=== PATIENT | female | born 1980 | race Caucasian/White ===

== ENCOUNTER 2017-03-04 12:59 | Emergency (ER) | payer OTHER ==
[2017-03-04 13:05] VITALS: O2SAT 100
[2017-03-04] MEDS ORDERED: Sodium Chloride 0.9% 1,000 ML IV ONE (13:20)
[2017-03-04 13:46] LABS: BASO # 0.1 K/uL (0.0-0.2); BASO % 1.1 % (0.0-2.0); EOS # 0.1 K/uL (0.0-0.7); EOS % 0.9 % (0.0-4.0); HEMATOCRIT 42.4 % (34.0-47.0); LYMPH # 2.9 K/uL (1.0-4.3); LYMPH % 22.6 % (20.0-40.0); MEAN CELL VOLUME 88.1 fL (81.0-99.0); MEAN CORPUSCULAR HEMOGLOBIN 30.7 pg (27.0-31.0); MEAN CORPUSCULAR HGB CONC 34.8 g/dL (33.0-37.0); MONO # 0.8 K/uL (0.0-0.8); MONO % 6.1 % (0.0-10.0); NRBC % 0.1 % (0.0-2.0); RED CELL DISTRIBUTION WIDTH 13.8 % (11.5-14.5); WHITE BLOOD COUNT 12.8 K/uL (4.8-10.8)
[2017-03-04 14:00] LABS: CHLORIDE 103 mmol/L (98-107); SODIUM 136 mmol/L (132-148)
[2017-03-04 14:02] LABS: RBC URINE 8 /hpf (0-3); URINE BACTERIA RARE (<OCC); URINE BILIRUBIN NEGATIVE (NEGATIVE); URINE BLOOD 3+ (NEGATIVE); URINE COLOR Yellow (YELLOW); URINE GLUCOSE (UA) NORMAL (Normal); URINE KETONE NEGATIVE (NEGATIVE); URINE LEUKOCYTE ESTERASE 2+ Leu/uL (Negative); URINE PROTEIN 1+ mg/dL (NEGATIVE); URINE UROBILINOGEN NORMAL mg/dL (0.2-1.0); WBC URINE 17 /hpf (0-5)
[2017-03-04 14:03] LABS: ALB/GLOB RATIO 1.5 (1.0-2.1); ALKALINE PHOSPHATASE 57 U/L (38-126); ALT/SGPT 28 U/L (9-52); AST/SGOT 25 U/L (14-36); BILIRUBIN,TOTAL 0.5 mg/dL (0.2-1.3); BLOOD UREA NITROGEN 9 mg/dL (7-17); CARBON DIOXIDE 20 mmol/L (22-30); GFR AFRICAN-AMERICAN > 60; GLUCOSE,RANDOM 89 mg/dL (65-105); TOTAL PROTEIN 7.4 g/dL (6.3-8.3)
[2017-03-04 14:04] LABS: CALCIUM 9.5 mg/dl (8.6-10.4)
--- NOTE | 2017-03-04 15:28 | US ---
Pelvic ultrasound History: Vaginal bleeding. . Comparison: None available. Technique: Real-time sonography was performed through the pelvis utilizing transabdominal and transvaginal techniques. Findings: LMP of 12/30/2016. Positive urine test. Uterus: 11.4 x 3.8 x 5.9 centimeters. Anteverted. Heterogeneous echotexture. 3.3 x 3.0 x 3.2 centimeter echogenic lesion in the mid fundal anterior uterus suggestive for a possible fibroid lesion. Intrauterine with intrauterine gestational sac measuring 1.66 centimeters corresponding to a gestational age of 6 weeks and 0 days. Yolk sac identified measuring 4 millimeters. [place]-rump length measures 3.9 millimeters corresponding to a gestational age of 6 weeks and 1 day. No heart rate identified on this study. No free fluid in the pelvic cul-de-sac. Right ovary: 3.1 x 1.9 x 2.4 centimeters. Normal flow. Heterogeneous probable corpus luteal cyst measuring 1.8 x 1.7 x 1.5 centimeters. Left ovary: 2.8 x 1.8 x 2.1 centimeters. Normal flow. Cervix measures 3.6 centimeters. Impression: Positive urine test. Intrauterine corresponding to a gestational age of approximately 6 weeks and 1 days with crown-rump length of 3.9 millimeters. Yolk sac and gestational sac identified. No heart rate identified on this study. This may represent an early intrauterine . Clinical correlation. Repeat ultrasound recommended. 3.3 centimeter echogenic lesion within the mid fundus of the uterus anteriorly which may represent a fibroid lesion. 1.8 centimeter probable right ovarian corpus luteal cyst. Limited 1st trimester ultrasound for viability purposes only. Continued interval followup with serial ultrasound, serial HCG levels, and gynecological consultation would be helpful if clinically indicated.
--- NOTE | 2017-03-04 15:32 | C.PDOC ---
History Of Present Illness 36 y/o female, , 6 weeks , presents to ED for evaluation of vaginal spotting for the past week. Pt states she has been noticing blood when wiping. Pt notes being seen by OBGYN yesterday, had sonogram done which showed gestational sac but no heart beat. (+) mild pelvic cramping. Pt reports that 1st progressed normally, with delivery. Denies fever, vomiting, diarrhea, or vaginal discharge. Time Seen by Provider: 03/04/17 13:15 Chief Complaint (Nursing): Female Genitourinary History Per: Patient History/Exam Limitations: no limitations Onset/Duration Of Symptoms: Days (1 week) Current Symptoms Are (Timing): Still Present Quality Of Discomfort: Cramping Associated Symptoms: denies: Fever, Chills, Vomiting, Diarrhea, Loss Of Appetite , Back Pain, Chest Pain, Constipation, Urinary Symptoms Alleviating Factors: None Additional History Per: Patient Abnormal Vaginal Bleeding: Yes : 2 Para: 1 Miscarriage: 0 Past Medical History Reviewed: Historical Data, Nursing Documentation, Vital Signs Vital Signs: Last Vital Signs Temp 97.8 F 03/04/17 13:04 Pulse 91 H 03/04/17 13:04 Resp 16 03/04/17 13:04 BP 108/74 03/04/17 13:04 Pulse Ox 100 03/04/17 16:51 Family History: States: Unknown Family Hx - Social History Hx Tobacco Use: No Hx Alcohol Use: No Hx Substance Use: No - Immunization History Hx Tetanus Toxoid Vaccination: No Hx Influenza Vaccination: No Hx Pneumococcal Vaccination: No Review Of Systems Except As Marked, All Systems Reviewed And Found Negative. Constitutional: Negative for: Fever, Chills Cardiovascular: Negative for: Chest Pain, Palpitations Respiratory: Negative for: Shortness of Breath Gastrointestinal: Negative for: Nausea, Vomiting, Diarrhea, Constipation Genitourinary: Positive for: Vaginal Bleeding (vaginal spotting), Pelvic Pain ( pelvic cramping). Negative for: Dysuria, Frequency, Incontinence, Hematuria, Vaginal Discharge Musculoskeletal: Negative for: Back Pain Skin: Negative for: Rash Physical Exam - Physical Exam Appears: Non-toxic, No Acute Distress Skin: Warm, Dry, No Rash Head: Atraumatic, Normacephalic Eye(s): bilateral: Normal Inspection, EOMI Oral Mucosa: Moist Neck: Normal ROM, Supple Chest: Symmetrical, No Tenderness Cardiovascular: Rhythm Regular, No Murmur Respiratory: Normal Breath Sounds, No Rales, No Rhonchi, No Wheezing Gastrointestinal/Abdominal: Soft, No Tenderness, No Guarding, No Rebound Back: No CVA Tenderness Extremity: Normal ROM Neurological/Psych: Oriented x3, Normal Speech ED Course And Treatment - Laboratory Results Result Diagrams: 03/04/17 13:42 03/04/17 13:42 O2 Sat by Pulse Oximetry: 100 (on RA) Pulse Ox Interpretation: Normal - CT Scan/US Preg 1st trimester US Other Rad Studies (CT/US): Read By Radiologist, Radiology Report Reviewed CT/US Interpretation: Accession No. : [id number]. Patient Name / ID : DEANDRA SPENCE / [id number]. Exam Date : 03/04/2017 14:26:16 ( Approved ). Study Comment : Sex / Age : F / 36Y. Creator : Luis A Sanders MD. Dictator : Luis A Sanders MD. Project Development Leader : Dead Mail Checker : Luis A Sanders MD. Approver2 : Report Date : 03/04/2017 15:26:30. My Comment : . Pelvic ultrasound. History: Vaginal bleeding. . Comparison: None available. Technique: Real-time sonography was performed through the pelvis utilizing transabdominal and transvaginal techniques. Findings: LMP of 12/30/2016. Positive urine test. Uterus: 11.4 x 3.8 x 5.9 centimeters. Anteverted. Heterogeneous echotexture. 3.3 x 3.0 x 3.2 centimeter echogenic lesion in the mid fundal anterior uterus suggestive for a possible fibroid lesion. Intrauterine with intrauterine gestational sac measuring 1.66 centimeters corresponding to a gestational age of 6 weeks and 0 days. Yolk sac identified measuring 4 millimeters. [place]-rump length measures 3.9 millimeters corresponding to a gestational age of 6 weeks and 1 day. No heart rate identified on this study. No free fluid in the pelvic cul-de-sac. Right ovary : 3.1 x 1.9 x 2.4 centimeters. Normal flow. Heterogeneous probable corpus luteal cyst measuring 1.8 x 1.7 x 1.5 centimeters. Left ovary: 2.8 x 1.8 x 2.1 centimeters. Normal flow. Cervix measures 3.6 centimeters. Impression: Positive urine test. Intrauterine corresponding to a gestational age of approximately 6 weeks and 1 days with crown-rump length of 3.9 millimeters. Yolk sac and gestational sac identified. No heart rate identified on this study. This may represent an early intrauterine . Clinical correlation. Repeat ultrasound recommended. 3.3 centimeter echogenic lesion within the mid fundus of the uterus anteriorly which may represent a fibroid lesion. 1.8 centimeter probable right ovarian corpus luteal cyst. Limited 1st trimester ultrasound for viability purposes only. Continued interval followup with serial ultrasound, serial HCG levels, and gynecological consultation would be helpful if clinically indicated. Progress Note: Blood work, UA, Preg 1st trimester ultrasound ordered and reviewed. Patient was given IV fluids. Disposition Counseled Patient/Family Regarding: Studies Performed, Diagnosis, Need For Followup - Disposition Referrals: Cristal Colbert MD [Staff Provider] - Disposition: HOME/ ROUTINE Disposition Time: 16:45 Condition: STABLE Additional Instructions: SEGUIMIENTO CON EL DR. COLBERT EL REINA SEGN LO PREVISTO DEVUELVA A LA JOSE ANTONIO DE EMERGENCIA SI LOS SNTOMAS EMPEORARAN Prescriptions: Nitrofurantoin Macrocrystals [Macrobid] 1 cap PO BID #14 cap Instructions: First Trimester Vaginal Bleed (ED), Urinary Tract Infection in (ED) Forms: [employer] (Japanese) Print Language: ANGUILLAN - POA Present On Arrival: None - Clinical Impression Clinical Impression: Spotting in first trimester, UTI in - Scribe Statement The provider has reviewed the documentation as recorded by the Kathyibtrudy Castañeda All medical record entries made by the Scribe were at my direction and personally dictated by me. I have reviewed the chart and agree that the record accurately reflects my personal performance of the history, physical exam, medical decision making, and the department course for this patient. I have also personally directed, reviewed, and agree with the discharge instructions and disposition.
--- NOTE | 2017-03-04 15:36 | C.PDOC ---
Time Seen by Provider: 03/04/17 13:15 Chief Complaint (Nursing): Female Genitourinary Past Medical History Vital Signs: Last Vital Signs Temp 97.8 F 03/04/17 13:04 Pulse 91 H 03/04/17 13:04 Resp 16 03/04/17 13:04 BP 108/74 03/04/17 13:04 Pulse Ox 100 03/04/17 15:35 Family History: States: Unknown Family Hx - Social History Hx Tobacco Use: No Hx Alcohol Use: No Hx Substance Use: No - Immunization History Hx Tetanus Toxoid Vaccination: No Hx Influenza Vaccination: No Hx Pneumococcal Vaccination: No ED Course And Treatment - Laboratory Results Result Diagrams: 03/04/17 13:42 03/04/17 13:42 O2 Sat by Pulse Oximetry: 100 - CT Scan/US TRANSVAGINAL US Other Rad Studies (CT/US): Read By Radiologist, Radiology Report Reviewed CT/US Interpretation: Accession No. : [id number]. Patient Name / ID : DEANDRA SPENCE / [id number]. Exam Date : 03/04/2017 14:26:16 ( Approved ). Study Comment : Sex / Age : F / 36Y. Creator : Luis A Sanders MD. Dictator : Luis A Sanders MD. Job Spotter : Size Worker : Luis A Sanders MD. Approver2 : Report Date : 03/04/2017 15:26:30. My Comment : . Pelvic ultrasound. History: Vaginal bleeding. . Comparison: None available. Technique: Real-time sonography was performed through the pelvis utilizing transabdominal and transvaginal techniques. Findings: LMP of 12/30/2016. Positive urine test. Uterus: 11.4 x 3.8 x 5.9 centimeters. Anteverted. Heterogeneous echotexture. 3.3 x 3.0 x 3.2 centimeter echogenic lesion in the mid fundal anterior uterus suggestive for a possible fibroid lesion. Intrauterine with intrauterine gestational sac measuring 1.66 centimeters corresponding to a gestational age of 6 weeks and 0 days. Yolk sac identified measuring 4 millimeters. [place]-rump length measures 3.9 millimeters corresponding to a gestational age of 6 weeks and 1 day. No heart rate identified on this study. No free fluid in the pelvic cul-de-sac. Right ovary : 3.1 x 1.9 x 2.4 centimeters. Normal flow. Heterogeneous probable corpus luteal cyst measuring 1.8 x 1.7 x 1.5 centimeters. Left ovary: 2.8 x 1.8 x 2.1 centimeters. Normal flow. Cervix measures 3.6 centimeters. Impression: Positive urine test. Intrauterine corresponding to a gestational age of approximately 6 weeks and 1 days with crown-rump length of 3.9 millimeters. Yolk sac and gestational sac identified. No heart rate identified on this study. This may represent an early intrauterine . Clinical correlation. Repeat ultrasound recommended. 3.3 centimeter echogenic lesion within the mid fundus of the uterus anteriorly which may represent a fibroid lesion. 1.8 centimeter probable right ovarian corpus luteal cyst. Limited 1st trimester ultrasound for viability purposes only. Continued interval followup with serial ultrasound, serial HCG levels, and gynecological consultation would be helpful if clinically indicated. Disposition - Disposition Forms: [employer] (Ivorian)
[2017-03-04 17:03] VITALS: BP 105/73; PULSE 89; RESP 20; TEMP 98.7
== END 2017-03-04 17:03 | disposition home or self-care (01) ==
LOC: C.ER 12:59
DX: O26.851 Spotting complicating pregnancy, first trimester (principal); O23.41 Unspecified infection of urinary tract in pregnancy, first trimester; Z3A.01 Less than 8 weeks gestation of pregnancy
CPT/HCPCS: 76805; 76817; 80053; 81001; 84702; 84703; 85025; 86850; 86900; 96360; 99284; J7040

== ENCOUNTER 2017-03-13 12:06 | Day surgery (SDC) | payer OTHER ==
[2017-03-10 14:08] VITALS: BMI 33.6
[2017-03-13] MEDS ORDERED: Lactated Ringer's 1,000 ML IV ONE ×2 (14:20)
[2017-03-13] MEDS ORDERED: Lidocaine Hydrochloride 5 ML INJ ONE (14:22)
[2017-03-13] MEDS ORDERED: Propofol 10 mg/ml Inj (20 ML) ONE (14:22)
[2017-03-13] MEDS ORDERED: Midazolam 2 MG/2 ML VIAL ONE (14:22)
[2017-03-13] MEDS ORDERED: cefOXitin IV 1 gm in Dextrose 1 GM/50 ML BAG IVPB ONE (14:28)
--- NOTE | 2017-03-13 14:59 | PCM.SURG1 ---
Surgeon's Initial Post Op Note - Surgeon's Notes Surgeon: Dr. Colbert [employer] Specialist: None Type of Anesthesia: General LMA Anesthesia Administered By: Dr. Gan Pre-Operative Diagnosis: 36 yo with Missed , Incomplete Operative Findings: AV uterus os open 1 cm Post-Operative Diagnosis: Same as above Operation Performed: Suction D and C Specimen/Specimens Removed: POCS Estimated Blood Loss: EBL {In ML}: 50 Blood Products Given: N/A Drains Used: No Drains Post-Op Condition: Good Date of Surgery/Procedure: 03/13/17 Time of Surgery/Procedure: 14:59
[2017-03-13] MEDS ORDERED: HYDROmorphone 0.5 mg/0.5 ml ISec IVP PRN (15:09)
[2017-03-13] MEDS ORDERED: Lactated Ringer's 1,000 ML IV SCH (15:15)
[2017-03-13 15:27] VITALS: O2SAT 100
[2017-03-13 16:47] VITALS: RESP 16
[2017-03-13 16:50] VITALS: BP 110/62; PULSE 86; TEMP 97.4
--- NOTE | 2017-03-20 16:59 | OP ---
PROCEDURE DATE: 03/13/2017 PREOPERATIVE DIAGNOSIS: A [id number] with history of menorrhagia, irregular menstrual period, failure of medical therapy. POSTOPERATIVE DIAGNOSIS: A [id number] with history of menorrhagia, irregular menstrual period, failure of medical therapy. PROCEDURE: Hysteroscopy and MyoSure and D and C. SURGEON: Cristal Colbert MD TYPE OF ANESTHESIA: General LMA. FINDINGS: Anteverted uterus, approximately 10 weeks' gestation. COMPLICATIONS: None. ESTIMATED BLOOD LOSS: Approximately 5 mL. Part of the procedure actually was a suction D and C due to a missed and an incomplete addendum. DESCRIPTION OF PROCEDURE: The patient was informed of the risk factors, benefits, and alternative of the procedure. Risks did include an infection, bleeding, damages to surrounding organs or tissues. Once all questions were answered, informed consent was obtained, she was then taken to the operating room, prepped and draped in normal sterile fashion, placed in dorsal lithotomy position. A weighted speculum was placed into the vagina. The anterior lip of the cervix was grasped with a single-toothed tenaculum. The suction device was 7 cm, was utilized and the products of conception was removed. Excellent hemostasis was noted. Fractional D and C was then performed, making the sure that the uterus was clean involving any products of conception, and a gritty texture was noted. Upon completion, the suction device was reintroduced, making sure that the uterus was clean of all products of conception. Upon completion, all instruments were removed from the vagina. Instrument and lap counts were correct x2. The patient was then taken to the recovery room in stable condition and instructed to follow up in the office in approximately 2 weeks. Cristal Colbert MD
== END 2017-03-13 16:32 | disposition home or self-care (01) ==
LOC: C.SDS 12:06
PROVIDERS: ATTEND Obstetrics & Gynecology
DX: N92.0 Excessive and frequent menstruation with regular cycle (principal)
CPT/HCPCS: 58563; 88305; J0694; J1170; J2210; J2250; J2704; J3010; J7120